=== PATIENT | female | born 2000 | race Native Hawaiian/Other Pacific Islander ===

== ENCOUNTER 2021-03-21 21:06 | Inpatient (IN) | payer OTHER, SELFPAY ==
[2021-03-21] MEDS ORDERED: cefTRIAXone/NS 1 GM/50 ML 1 GM/50 ML BAG IV ONE (22:23)
[2021-03-21] MEDS ORDERED: SODIUM CHLORIDE 0.9% 1000 ML IV SOLN IV ONE (22:24)
--- NOTE | 2021-03-21 22:27 | Event Note ---
ED Screening Note Date of service: 03/21/21 Time: 22:26 ED Screening Note: Is a 20-year-old female who presents for cough shortness of breath and fever x3 days. States PCP advised her that she had bilateral lobe pneumonia. Patient is states negative Covid test. Patient denies history of asthma there is no shortness of breath however there is mild weakness malaise and dizziness. This initial assessment/diagnostic orders/clinical plan/treatment(s) is/are subject to change based on patients health status, clinical progression and re- assessment by fellow clinical providers in the ED. Further treatment and workup at subsequent clinical providers discretion. Patient/guardian urged not to elope from the ED as their condition may be serious if not clinically assessed and managed. Initial orders include: Sepsis, cmp, cbc, ua, hcg, lactic acic, bc x 2, ivfs, abx,
[2021-03-21 22:58] LABS: Basophils % (Auto) 0.2 % (0.0-1.8); Hematocrit 38.3 % (30.3-42.9); Lymphocytes # (Auto) 1.3 K/mm3 (1.2-5.4); Lymphocytes % (Auto) 10.4 % (13.4-35.0); Mean Corpuscular HGB Conc 34 % (30-34); Mean Corpuscular Volume 90 fl (79-97); Monocytes # (Auto) 0.8 K/mm3 (0.0-0.8); Monocytes % (Auto) 6.2 % (0.0-7.3); Platelet Count 259 K/mm3 (140-440); Red Blood Count 4.28 M/mm3 (3.65-5.03); Red Cell Distribution Width 12.7 % (13.2-15.2)
[2021-03-21] MEDS ORDERED: ACETAMINOPHEN 325 MG TAB PO ONE (23:02)
[2021-03-22] MEDS ORDERED: ACETAMINOPHEN 500 MG TAB ONE (00:05)
[2021-03-22] MEDS ORDERED: ACETAMINOPHEN 500 MG TAB PO ONE (00:40)
[2021-03-22] MEDS ORDERED: dexAMETHasone 4 MG/ML VIAL IV ONE (00:40)
[2021-03-22] MEDS ORDERED: dexAMETHasone 4 MG/ML VIAL ONE (00:45)
[2021-03-22] MEDS ORDERED: AZITHROMYCIN/NS 500 MG/250 ML 500 MG/250 ML BAG IV ONE (00:46)
[2021-03-22] MEDS ORDERED: AZITHROMYCIN/NS 500 MG/250 ML 500 MG/250 ML BAG IV SCH (01:00)
[2021-03-22] MEDS ORDERED: dexAMETHasone 4 MG/ML VIAL IV SCH (01:00)
--- NOTE | 2021-03-22 02:08 | Emergency Department Report ---
ED Shortness of Breath HPI - General Chief Complaint: Dyspnea/Respdistress Stated Complaint: PNEUMONIA Time Seen by Provider: 03/21/21 22:46 Source: patient Mode of arrival: Ambulatory Limitations: No Limitations - History of Present Illness Initial Comments: Patient is 20 years old female with no significant past medical history. Patient presented to the ER after she has been referred by her primary care physician to the ER for evaluation of bilateral pneumonia. Patient stated the symptoms started approximately 7 days ago with fever, shortness of breath and cough. Patient stated that her father is having similar symptoms. Patient is not vaccinated against COVID-19. Patient also reported nausea but no vomiting. Patient found to be hypoxic with oxygen saturation of 90% on room air improved to 96% on 2 L. MD Complaint: shortness of breath, cough -: days(s) - Related Data Allergies Allergy/AdvReac Type Severity Reaction Status Date / Time No Known Allergies Allergy Unverified 03/21/21 22:11 ED Review of Systems ROS: Stated complaint: PNEUMONIA Other details as noted in HPI Comment: All other systems reviewed and negative Constitutional: chills, fever Respiratory: cough, shortness of breath. denies: SOB with exertion, wheezing Cardiovascular: palpitations. denies: chest pain Gastrointestinal: nausea. denies: abdominal pain, vomiting, diarrhea, constipation, hematemesis Neurological: denies: headache, weakness, numbness, paresthesias, confusion ED Past Medical Hx - Past Medical History Previous Medical History?: No - Surgical History Past Surgical History?: No ED Physical Exam - General Limitations: No Limitations General appearance: alert, in no apparent distress - Head Head exam: Present: atraumatic, normocephalic, normal inspection - Eye Eye exam: Present: normal appearance, PERRL - ENT ENT exam: Present: mucous membranes dry - Neck Neck exam: Present: normal inspection, full ROM. Absent: tenderness, meningismus - Respiratory Respiratory exam: Present: normal lung sounds bilaterally. Absent: respiratory distress, wheezes, rales, rhonchi, accessory muscle use, decreased breath sounds, prolonged expiratory - Cardiovascular Cardiovascular Exam: Present: regular rate, normal rhythm, normal heart sounds - GI/Abdominal GI/Abdominal exam: Present: soft, normal bowel sounds. Absent: distended, tenderness, guarding, rebound, rigid, organomegaly, mass, bruit, pulsatile mass, hernia - Extremities Exam Extremities exam: Present: normal inspection, full ROM, normal capillary refill. Absent: tenderness, pedal edema, joint swelling, calf tenderness - Back Exam Back exam: Present: normal inspection, full ROM. Absent: CVA tenderness (R), CVA tenderness (L) - Neurological Exam Neurological exam: Present: alert, oriented X3, CN II-XII intact, normal gait, reflexes normal. Absent: motor sensory deficit - Psychiatric Psychiatric exam: Present: normal mood - Skin Skin exam: Present: warm, intact, normal color ED Course Vital Signs 03/21/21 22:13 Temperature 103.0 F H Pulse Rate 142 H Respiratory 18 Rate Blood Pressure 120/59 O2 Sat by Pulse 92 Oximetry ED Medical Decision Making - Lab Data Result diagrams: 03/21/21 22:34 03/21/21 22:34 - Radiology Data Radiology results: report reviewed - Medical Decision Making Patient is 20 years old female with no significant past medical history. Patient presented to the ER after she has been referred by her primary care physician to the ER for evaluation of bilateral pneumonia. Patient stated the symptoms started approximately 7 days ago with fever, shortness of breath and cough. Patient stated that her father is having similar symptoms. Patient is not vaccinated against COVID-19. Patient also reported nausea but no vomiting. Patient found to be hypoxic with oxygen saturation of 90% on room air improved to 96% on 2 L. Labs reviewed and showed leukocytosis. Chest x-ray showed bilateral infiltrate concerning for pneumonia. Patient received Rocephin, Zithromax, Decadron, normal saline and Tylenol. I discussed the patient with Dr. Ponce, he agreed to admit the patient to medical service for further management. Critical Care Time: Yes Critical care time in (mins) excluding proc time.: 30 Critical care attestation.: If time is entered above; I have spent that time in minutes in the direct care of this critically ill patient, excluding procedure time. ED Disposition Clinical Impression: Acute respiratory failure with hypoxia, Bilateral pneumonia, Suspected COVID-19 virus infection Disposition: ADMITTED INPATIENT Is pt being admited?: Yes Condition: Stable Instructions: Bacterial Pneumonia (ED)
[2021-03-22 02:50] LABS: Bilirubin,Urine NEG (Negative); Blood,Urine SM (Negative); Color,Urine Yellow (Yellow); Mucus,Urine FEW /HPF
[2021-03-22 02:50] LABS: Alanine Aminotransferase 71 units/L (7-56); Albumin 4.1 g/dL (3.9-5); BUN/Creatinine Ratio 14; Blood Urea Nitrogen 11 mg/dL (7-17); Hemolysis Index 2
[2021-03-22 02:57] LABS: HCG Qualitative,Urine Negative (Negative)
[2021-03-22] MEDS ORDERED: oxyCODONE /ACETAMINOPHEN 5-325MG TAB PO PRN (03:17)
[2021-03-22] MEDS ORDERED: ALBUTEROL 2.5 MG/3 ML NEBU IH PRN (03:17)
[2021-03-22] MEDS ORDERED: HYDROmorphone 1 MG/1 ML INJ IV PRN (03:17)
--- NOTE | 2021-03-22 03:25 | History and Physical Report ---
History of Present Illness Date of examination: 03/22/21 Date of admission: 03/22/21 Chief complaint: Shortness of breath Cough History of present illness: 20 years old female with no significant past medical history was brought to the emergency room because of bilateral pneumonia, shortness of breath and coughing for the last 7 days. patient stated the symptoms started approximately 7 days ago with fever, shortness of breath and cough. Patient stated that her father is having similar symptoms. Patient is not vaccinated against COVID-19. Patient also reported nausea but no vomiting. Patient found to be hypoxic with oxygen saturation of 90% on room air improved to 96% on 2 L. In the emergency room patient chest x-ray consistent with Covid pneumonia. We are going to admit the patient will consult infectious disease for evaluation. We also sent Covid PCR Medications and Allergies Allergies Allergy/AdvReac Type Severity Reaction Status Date / Time No Known Allergies Allergy Unverified 03/21/21 22:11 Review of Systems All systems: negative Constitutional: fever Cardiovascular: shortness of breath, dyspnea on exertion Respiratory: cough, shortness of breath, dyspnea on exertion Exam - Constitutional Vitals: Temp Pulse Resp BP Pulse Ox 103.0 F H 142 H 18 120/59 92 03/21/21 22:13 03/21/21 22:13 03/21/21 22:13 03/21/21 22:13 03/21/21 22:13 General appearance: Present: no acute distress, well-nourished - EENT Eyes: Present: PERRL ENT: hearing intact, clear oral mucosa - Neck Neck: Present: supple, normal ROM - Respiratory Respiratory effort: normal Respiratory: bilateral: diminished - Cardiovascular Heart Sounds: Present: S1 & S2. Absent: rub, click - Extremities Extremities: pulses symmetrical, No edema Peripheral Pulses: within normal limits - Abdominal General gastrointestinal: Present: soft, non-tender, non-distended, normal bowel sounds Female genitourinary: Present: normal - Integumentary Integumentary: Present: clear, warm, dry - Musculoskeletal Musculoskeletal: gait normal, strength equal bilaterally - Psychiatric Psychiatric: appropriate mood/affect, intact judgment & insight - Neurologic Neurologic: CNII-XII intact, moves all extremities Results - Labs CBC & Chem 7: 03/21/21 22:34 03/21/21 22:34 Labs: Laboratory Last Values WBC 12.5 K/mm3 (4.5-11.0) H 03/21/21 22:34 RBC 4.28 M/mm3 (3.65-5.03) 03/21/21 22:34 Hgb 13.0 gm/dl (10.1-14.3) 03/21/21 22:34 Hct 38.3 % (30.3-42.9) 03/21/21 22:34 MCV 90 fl (79-97) 03/21/21 22:34 MCH 31 pg (28-32) 03/21/21 22:34 MCHC 34 % (30-34) 03/21/21 22:34 RDW 12.7 % (13.2-15.2) L 03/21/21:34 Plt Count 259 K/mm3 (140-440) 03/21/21 22:34 Lymph % (Auto) 10.4 % (13.4-35.0) L 03/21/21 22:34 [place] % (Auto) 6.2 % (0.0-7.3) 03/21/21 22:34 Eos % (Auto) 0.0 % (0.0-4.3) 03/21/21 22:34 Baso % (Auto) 0.2 % (0.0-1.8) 03/21/21:34 Lymph # (Auto) 1.3 K/mm3 (1.2-5.4) 03/21/21 22:34 [place] # (Auto) 0.8 K/mm3 (0.0-0.8) 03/21/21 22:34 Eos # (Auto) 0.0 K/mm3 (0.0-0.4) 03/21/21 22:34 Baso # (Auto) 0.0 K/mm3 (0.0-0.1) 03/21/21 22:34 Seg Neutrophils % 83.2 % (40.0-70.0) H 03/21/21:34 Seg Neutrophils # 10.4 K/mm3 (1.8-7.7) H 03/21/21 22:34 Sodium 136 mmol/L (137-145) L 03/21/21 22:34 Potassium 3.1 mmol/L (3.6-5.0) L 03/21/21 22:34 Chloride 99.3 mmol/L (98-107) 03/21/21 22:34 Carbon Dioxide 20 mmol/L (22-30) L 03/21/21 22:34 Anion Gap 20 mmol/L 03/21/21 22:34 BUN 11 mg/dL (7-17) 03/21/21 22:34 Creatinine 0.8 mg/dL (0.6-1.2) 03/21/21 22:34 Estimated GFR > 60 ml/min 03/21/21 22:34 BUN/Creatinine Ratio 14 % 03/21/21 22:34 Glucose 131 mg/dL (65-100) H 03/21/21 22:34 Lactic Acid 1.70 mmol/L (0.7-2.0) 03/21/21 22:34 Calcium 9.0 mg/dL (8.4-10.2) 03/21/21 22:34 Total Bilirubin 0.40 mg/dL (0.1-1.2) 03/21/21 22:34 AST 46 units/L (5-40) H 03/21/21 22:34 ALT 71 units/L (7-56) H 03/21/21 22:34 Alkaline Phosphatase 62 units/L (35-129) 03/21/21 22:34 Total Protein 8.5 g/dL (6.3-8.2) H 03/21/21 22:34 Albumin 4.1 g/dL (3.9-5) 03/21/21 22:34 Albumin/Globulin Ratio 0.9 % 03/21/21 22:34 Urine Color Yellow (Yellow) 03/21/21 23:00 Urine Turbidity Slightly-cloudy (Clear) 03/21/21 23:00 Urine pH 6.0 (5.0-7.0) 03/21/21 23:00 Ur Specific [place] 1.020 (1.003-1.030) 03/21/21 23:00 Urine Protein 100 mg/dl mg/dL (Negative) 03/21/21 23:00 Urine Glucose (UA) Neg mg/dL (Negative) 03/21/21 23:00 Urine Ketones 80 mg/dL (Negative) 03/21/21 23:00 Urine Blood Sm (Negative) 03/21/21 23:00 Urine Nitrite Neg (Negative) 03/21/21 23:00 Urine Bilirubin Neg (Negative) 03/21/21 23:00 Urine Urobilinogen 2.0 mg/dL (<2.0) 03/21/21 23:00 Ur Leukocyte Esterase Mod (Negative) 03/21/21 23:00 Urine WBC (Auto) 13.0 /HPF (0.0-6.0) H 03/21/21 23:00 Urine RBC (Auto) 2.0 /HPF (0.0-6.0) 03/21/21 23:00 U Epithel Cells (Auto) 4.0 /HPF (0-13.0) 03/21/21 23:00 Urine Mucus Few /HPF 03/21/21 23:00 Urine HCG, Qual Negative (Negative) 03/21/21 23:00 - Imaging and Cardiology Chest x-ray: report reviewed Assessment and Plan VTE prophylaxis?: Chemical Plan of care discussed with patient/family: Yes - Patient Problems (1) Acute respiratory failure with hypoxia Status: Acute Plan to address problem: Admit the patient to the medical telemetry. Oxygen via nasal cannula 3 L/min. DuoNeb by nebulizer every 4 hours. Albuterol via nebulizer every 4 hours as needed. Dexamethasone 6 mg IV daily. Rocephin 2 g IV daily and Zithromax 500 mg IV daily. We will send the Covid PCR. Follow Covid inflammatory marker. Will consult infectious disease evaluation (2) Bilateral pneumonia Status: Acute Plan to address problem: Oxygen via nasal cannula 3 L/min. DuoNeb by nebulizer every 4 hours. Rocephin 2 g IV daily and Zithromax 500 mg IV daily. We do the blood cultures sputum culture (3) Suspected COVID-19 virus infection Status: Acute Plan to address problem: Oxygen via nasal cannula 3 L/min. DuoNeb by nebulizer every 4 hours. Albuterol via nebulizer every 4 hours as needed. Dexamethasone 6 mg IV daily. Rocephin 2 g IV daily and Zithromax 500 mg IV daily. We will send the Covid PCR. Follow Covid inflammatory marker. Will consult infectious disease evaluation (4) DVT prophylaxis Status: Acute Plan to address problem: Heparin 5000 units subcu every 8 hours for DVT prophylaxis. Pepcid 20 mg p.o. twice daily for GI prophylaxis. Patient is a full code
[2021-03-22] MEDS: HEPARIN 5,000 UNIT/1 ML VIAL SUB-Q SCH ×3 (06:30→22:24)
--- NOTE | 2021-03-22 09:03 | Consultation ---
History of Present Illness - Reason for Consult Consult date: 03/22/21 covid - History of Present Illness 20-year-old female no medical history, admitted on 03/21/2021 secondary to 7-day history of malaise, cough, fever, shortness of breath. Patient's father has same symptoms. Patient did not receive COVID-19 vaccination. Patient was evaluated with primary care physician who sent the patient to the emergency room. In the ED, initial temperature 103, HR 142, RR 18, O2 sat 92%, BP 120/59. Initial WBC 12.5. AST 46. ALT 71. Urinalysis 13 WBCs with moderate leukocyte esterase. Blood culture pending. Chest x-ray shows moderate patchy airspace disease. In the ED sats dropped to 90% patient placed on 2 L. Review of Systems: reviewed ED and H&P notes. Review of system deferred to minimize COVID-19 transmission. Medications and Allergies Allergies Allergy/AdvReac Type Severity Reaction Status Date / Time No Known Allergies Allergy Unverified 03/21/21 22:11 Active Meds: Active Medications Acetaminophen (Acetaminophen 325 Mg Tab) 650 mg PO Q4H PRN PRN Reason: Pain MILD(1-3)/Fever >100.5/[place] Albuterol (Albuterol 2.5 Mg/3 Ml Nebu) 2.5 mg IH Q4HRT PRN PRN Reason: Shortness Of Breath Albuterol/Ipratropium (Ipratropium/Albuterol Sulfate 3 Ml Ampul.Neb) 1 ampul IH Q6HRT [facility] Dexamethasone (Dexamethasone 4 Mg/Ml Vial) 6 mg IV DAILY [facility] Stop: 03/31/21 10:01 Famotidine (Famotidine 20 Mg Tab) 20 mg PO BID [facility] Heparin Sodium (Porcine) (Heparin 5,000 Unit/1 Ml Vial) 5,000 unit SUB-Q Q8HR [facility] Last Admin: 03/22/21 06:30 Dose: 5,000 unit Documented by: Hydromorphone HCl (Hydromorphone 1 Mg/1 Ml Inj) 0.5 mg IV Q3H PRN PRN Reason: Pain , Severe (7-10) Ceftriaxone Sodium (Rocephin/Ns 2 Gm/100 Ml) 2 gm in 100 mls @ 200 mls/hr IV QHS [facility]; Protocol Stop: 03/25/21 22:29 Azithromycin (Zithromax/Ns) 500 mg in 250 mls @ 250 mls/hr IV QHS [facility]; Protocol Stop: 03/25/21 22:59 Ondansetron HCl (Ondansetron 4 Mg/2 Ml Inj) 4 mg IV Q8H PRN PRN Reason: Nausea And Vomiting Oxycodone/Acetaminophen (Oxycodone /Acetaminophen 5-325mg Tab) 1 tab PO Q6H PRN PRN Reason: Pain, Moderate (4-6) Sodium Chloride (Sodium Chloride 0.9% 10 Ml Flush Syringe) 10 ml IV BID [facility] Sodium Chloride (Sodium Chloride 0.9% 10 Ml Flush Syringe) 10 ml IV PRN PRN PRN Reason: LINE FLUSH Physical Examination - Physical Exam Narrative exam: Physical exam deferred to minimize COVID-19 transmission during pandemic. - Constitutional Vitals: Vital Signs Temp Pulse Resp BP Pulse Ox 103.0 F H 142 H 18 120/59 92 03/21/21 22:13 03/21/21 22:13 03/21/21 22:13 03/21/21 22:13 03/21/21 22:13 Temperature -Last 24 Hours Temperature 103.0 F Results - Labs CBC & Chem 7: 03/21/21 22:34 03/21/21 22:34 Labs: Abnormal lab results 03/21/21 03/21/21 03/21/21 Range/Units 22:34 22:34 23:00 WBC 12.5 H (4.5-11.0) K/mm3 RDW 12.7 L (13.2-15.2) % Lymph % (Auto) 10.4 L (13.4-35.0) % Seg Neutrophils % 83.2 H (40.0-70.0) % Seg Neutrophils # 10.4 H (1.8-7.7) K/mm3 Sodium 136 L (137-145) mmol/L Potassium 3.1 L (3.6-5.0) mmol/L Carbon Dioxide 20 L (22-30) mmol/L Glucose 131 H (65-100) mg/dL AST 46 H (5-40) units/L ALT 71 H (7-56) units/L Total Protein 8.5 H (6.3-8.2) g/dL Urine WBC (Auto) 13.0 H (0.0-6.0) /HPF Assessment and Plan Cultures: Blood culture pending SARS CoV2 PCR pending Assessment: 20-year-old female no medical history, admitted on 03/21/2021 secondary to 7-day history of malaise, cough, fever, shortness of breath: #SIRS: Present on admission with fever, leukocytosis, elevated LFTs, likely secondary to COVID-19 infection plus UTI #Bilateral pneumonia: Suspect COVID-19 infection. CXR with multifocal airspace disease. Infllammatory markers pending. #Urinalysis consistent with UTI. #Acute hypoxemic respiratory failure: Sats dropped to 90%. Patient on 2 L. #Elevated LFTs: from COVID Recommendations: -Continue dexamethasone 6 mg IV/PO daily for 10 days -Once SARS-CoV-2 is positive start remdesivir for 5 days (CrCl>30 mg/mL) if patient continues on oxygen supplementation -Monitor inflammatory markers - ferritin, Ddimer, CRP, LDH -Continue anticoagulation per System Protocol -Prone positioning as possible -Continue ceftriaxone for 5 days and azithromycin for 3 says -Follow-up blood culture and urine culture All laboratory, cultures and imaging were reviewed. Will follow Gaby Morley MD Infectious Diseases Merchandising Manager [facility] ([facility] M [phone] O [phone]
[2021-03-22] MEDS: FAMOTIDINE 20 MG TAB PO SCH ×2 (10:10→22:22)
[2021-03-22] MEDS: dexAMETHasone 4 MG/ML VIAL IV SCH (10:10)
--- NOTE | 2021-03-22 15:35 | Progress Note ---
Assessment and Plan -- Acute respiratory failure with hypoxia, resolved Likely due to underlying Covid pneumonia We will assess home O2 requirement on ambulation Continue Covid protocol: Nasal cannula O2 as needed -- Bilateral pneumonia with COVID-19 virus infection -Patient tested positive for COVID-19 virus -CXR shows patchy parenchymal disease which represent atypical pneumonia -S/p dexamethasone, azithromycin and Rocephin in the ED -Ordered procalcitonin level, continue empiric antibiotics and steroids for now -Infectious disease consulted, -Droplet/contact isolation -Continue SPO2 monitoring -Supplemental oxygen as needed -Pulmonary hygiene -Prone to sleep -Vitamin C, vitamin D, zinc -Anticoagulation per protocol -Lasix IV as needed to prevent pulmonary edema --Hypokalemia, replete and follow BMP --DVT prophylaxis Heparin 5000 units subcu every 8 hours for DVT prophylaxis. Pepcid 20 mg p.o. twice daily for GI prophylaxis. Patient is a full code Daily clinical course; 03/22/21: positive for COVID, consulted ID, follow recommendation. Continue empiric antibiotic. Procalcitonin level is pending, patient resting in room air does not meet criteria for remdesivir. Subjective Date of service: 03/22/21 Interval history: Patient seen and examined. Medical records and medication list reviewed. No acute event overnight noted by the RN. Patient denies any chest pain or difficulty breathing. Patient is tolerating diet. Complains of cough: Remains on room air, positive for covid 19 Discussed plan of care at bedside with patient. Objective - Exam Narrative Exam: Limited physical exam due to COVID-19 pandemic to minimize transmission of the disease and to preserve PPE. Vital reviewed and stable. GENERAL: well-developed well-nourished lying on bed appeared to be in no discomfort. HEENT: Normocephalic. Atraumatic. NECK: Supple. CHEST/LUNGS: breathing nonlabored. HEART/CARDIOVASCULAR: Heart rate stable on telemetry ABDOMEN: Visibly not distended SKIN: There is no rash NEURO: No focal motor deficit. Follows command. MUSCULOSKELETAL: No joint effusion EXTRIMITY: No swelling, no cyanosis or clubbing. PSYCH: Cooperative. - Constitutional Vitals: Vital Signs - 12hr 03/22/21 11:08 O2 Sat by Pulse 97 Oximetry - Labs CBC & Chem 7: 03/21/21 22:34 09/21/21 22:34 Labs: Abnormal lab results 03/21/21 03/21/21 03/21/21 Range/Units 22:34 22:34 23:00 WBC 12.5 H (4.5-11.0) K/mm3 RDW 12.7 L (13.2-15.2) % Lymph % (Auto) 10.4 L (13.4-35.0) % Seg Neutrophils % 83.2 H (40.0-70.0) % Seg Neutrophils # 10.4 H (1.8-7.7) K/mm3 Sodium 136 L (137-145) mmol/L Potassium 3.1 L (3.6-5.0) mmol/L Carbon Dioxide 20 L (22-30) mmol/L Glucose 131 H (65-100) mg/dL AST 46 H (5-40) units/L ALT 71 H (7-56) units/L Total Protein 8.5 H (6.3-8.2) g/dL Urine WBC (Auto) 13.0 H (0.0-6.0) /HPF Coronavirus (PCR) (Negative) 03/22/21 Range/Units Unknown WBC (4.5-11.0) K/mm3 RDW (13.2-15.2) % Lymph % (Auto) (13.4-35.0) % Seg Neutrophils % (40.0-70.0) % Seg Neutrophils # (1.8-7.7) K/mm3 Sodium (137-145) mmol/L Potassium (3.6-5.0) mmol/L Carbon Dioxide (22-30) mmol/L Glucose (65-100) mg/dL AST (5-40) units/L ALT (7-56) units/L Total Protein (6.3-8.2) g/dL Urine WBC (Auto) (0.0-6.0) /HPF Coronavirus (PCR) Positive A (Negative)
[2021-03-22] MEDS: IPRATROPIUM/ALBUTEROL SULFATE 3 ML AMPUL.NEB IH SCH ×3 (16:12→21:43)
[2021-03-22] MEDS: AZITHROMYCIN/NS 500 MG/250 ML 500 MG/250 ML BAG IV SCH (22:23)
[2021-03-22] MEDS: ACETAMINOPHEN 325 MG TAB PO PRN (22:24)
[2021-03-22] MEDS: ONDANSETRON 4 MG/2 ML INJ IV PRN (22:40)
[2021-03-22] MEDS: cefTRIAXone/NS 2 GM/100 ML 2 GM/100 ML BAG IV SCH (22:41)
[2021-03-22] MEDS: guaiFENesin 100 MG/5 ML ORAL LIQD PO PRN (23:10)
[2021-03-23] MEDS: IPRATROPIUM/ALBUTEROL SULFATE 3 ML AMPUL.NEB IH SCH ×2 (01:37→18:38)
[2021-03-23] MEDS: guaiFENesin 100 MG/5 ML ORAL LIQD PO PRN ×3 (06:44→22:15)
[2021-03-23] MEDS: HEPARIN 5,000 UNIT/1 ML VIAL SUB-Q SCH ×3 (06:44→22:15)
--- NOTE | 2021-03-23 08:17 | Progress Note ---
Assessment and Plan Assessment and plan: -- Acute respiratory failure with hypoxia, resolved Likely due to underlying Covid pneumonia We will assess home O2 requirement on ambulation Continue Covid protocol: Nasal cannula O2 as needed -- Bilateral pneumonia with COVID-19 virus infection -Patient tested positive for COVID-19 virus -CXR shows patchy parenchymal disease which represent atypical pneumonia -S/p dexamethasone, azithromycin and Rocephin in the ED -Ordered procalcitonin level, continue empiric antibiotics and steroids for now -Infectious disease consulted, -Droplet/contact isolation -Continue SPO2 monitoring -Supplemental oxygen as needed -Pulmonary hygiene -Prone to sleep -Vitamin C, vitamin D, zinc -Anticoagulation per protocol -Lasix IV as needed to prevent pulmonary edema --Hypokalemia, replete and follow BMP --DVT prophylaxis Heparin 5000 units subcu every 8 hours for DVT prophylaxis. Pepcid 20 mg p.o. twice daily for GI prophylaxis. Patient is a full code Daily clinical course; 03/22/21: positive for COVID, consulted ID, follow recommendation. Continue empiric antibiotic. Procalcitonin level is pending, patient resting in room air does not meet criteria for remdesivir. 03/23 -Patient was on 2 L of oxygen. She does complaining cough, shortness of breath. We will do 6-minute walk. And if off oxygen patient can be discharged tomorrow. History Interval history: Patient was seen and evaluated this morning Patient was complaining shortness of breath, chest pain and cough Hospitalist Physical - Physical exam Narrative exam: Not in cardiopulmonary distress. The patient is obese. Vital signs as documented. Head exam is unremarkable. No scleral icterus . Neck is without jugular venous distension, thyromegaly, or carotid bruits. Lungs are clear to auscultation. Cardiac exam reveals regular rate and Rhythm. Abdominal exam reveals normal bowel sounds, nontender, no organomegaly. Extremities are nonedematous and both femoral and pedal pulses are normal. 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 No focal weakness. - Constitutional Vitals: Temp Pulse Resp BP Pulse Ox 98.5 F 88 16 114/60 91 03/23/21 04:17 03/23/21 04:17 03/23/21 04:17 03/23/21 04:17 03/23/21 04:17 General appearance: Present: no acute distress, well-nourished Results - Labs CBC & Chem 7: 03/23/21 09:17 03/23/21 09:17 Labs: Laboratory Last Values WBC 12.5 K/mm3 (4.5-11.0) H 03/21/21 22:34 RBC 4.28 M/mm3 (3.65-5.03) 03/21/21 22:34 Hgb 13.0 gm/dl (10.1-14.3) 03/21/21 22:34 Hct 38.3 % (30.3-42.9) 03/21/21 22:34 MCV 90 fl (79-97) 03/21/21 22:34 MCH 31 pg (28-32) 03/21/21 22:34 MCHC 34 % (30-34) 03/21/21 22:34 RDW 12.7 % (13.2-15.2) L 03/21/21 22:34 Plt Count 259 K/mm3 (140-440) 03/21/21 22:34 Lymph % (Auto) 10.4 % (13.4-35.0) L 03/21/21 22:34 [place] % (Auto) 6.2 % (0.0-7.3) 03/21/21 22:34 Eos % (Auto) 0.0 % (0.0-4.3) 03/21/21 22:34 Baso % (Auto) 0.2 % (0.0-1.8) 03/21/21 22:34 Lymph # (Auto) 1.3 K/mm3 (1.2-5.4) 03/21/21 22:34 [place] # (Auto) 0.8 K/mm3 (0.0-0.8) 03/21/21 22:34 Eos # (Auto) 0.0 K/mm3 (0.0-0.4) 03/21/21 22:34 Baso # (Auto) 0.0 K/mm3 (0.0-0.1) 03/21/21 22:34 Seg Neutrophils % 83.2 % (40.0-70.0) H 03/21/21 22:34 Seg Neutrophils # 10.4 K/mm3 (1.8-7.7) H 03/21/21 22:34 Sodium 136 mmol/L (137-145) L 03/21/21 22:34 Potassium 3.1 mmol/L (3.6-5.0) L 03/21/21 22:34 Chloride 99.3 mmol/L (98-107) 03/21/21 22:34 Carbon Dioxide 20 mmol/L (22-30) L 03/21/21 22:34 Anion Gap 20 mmol/L 03/21/21 22:34 BUN 11 mg/dL (7-17) 03/21/21 22:34 Creatinine 0.8 mg/dL (0.6-1.2) 03/21/21 22:34 Estimated GFR > 60 ml/min 03/21/21 22:34 BUN/Creatinine Ratio 14 % 03/21/21 22:34 Glucose 131 mg/dL (65-100) H 03/21/21 22:34 Lactic Acid 1.70 mmol/L (0.7-2.0) 03/21/21 22:34 Calcium 9.0 mg/dL (8.4-10.2) 03/21/21 22:34 Total Bilirubin 0.40 mg/dL (0.1-1.2) 03/21/21 22:34 AST 46 units/L (5-40) H 03/21/21 22:34 ALT 71 units/L (7-56) H 03/21/21 22:34 Alkaline Phosphatase 62 units/L (35-129) 03/21/21 22:34 Total Protein 8.5 g/dL (6.3-8.2) H 03/21/21 22:34 Albumin 4.1 g/dL (3.9-5) 03/21/21 22:34 Albumin/Globulin Ratio 0.9 % 03/21/21 22:34 HCG, Qual Negative (Negative) 03/21/21 23:54 Urine Color Yellow (Yellow) 03/21/21 23:00 Urine Turbidity Slightly-cloudy (Clear) 03/21/21 23:00 Urine pH 6.0 (5.0-7.0) 03/21/21 23:00 Ur Specific [place] 1.020 (1.003-1.030) 03/21/21 23:00 Urine Protein 100 mg/dl mg/dL (Negative) 03/21/21 23:00 Urine Glucose (UA) Neg mg/dL (Negative) 03/21/21 23:00 Urine Ketones 80 mg/dL (Negative) 03/21/21 23:00 Urine Blood Sm (Negative) 03/21/21 23:00 Urine Nitrite Neg (Negative) 03/21/21 23:00 Urine Bilirubin Neg (Negative) 03/21/21 23:00 Urine Urobilinogen 2.0 mg/dL (<2.0) 03/21/21 23:00 Ur Leukocyte Esterase Mod (Negative) 03/21/21 23:00 Urine WBC (Auto) 13.0 /HPF (0.0-6.0) H 03/21/21 23:00 Urine RBC (Auto) 2.0 /HPF (0.0-6.0) 03/21/21 23:00 U Epithel Cells (Auto) 4.0 /HPF (0-13.0) 03/21/21 23:00 Urine Mucus Few /HPF 03/21/21 23:00 Urine HCG, Qual Negative (Negative) 03/21/21 23:00 Coronavirus (PCR) Positive (Negative) A 03/22/21 Unknown Microbiology: Microbiology 03/21/21 23:00 Peripheral/Venous Blood Culture - Preliminary NO GROWTH AFTER 24 HOURS 03/21/21 22:30 Peripheral/Venous Blood Culture - Preliminary NO GROWTH AFTER 24 HOURS Brewer/IV: Voiding Method Toilet Active Medications - Current Medications Current Medications: Generic Name Dose Route Start Last Admin Trade Name Freq PRN Reason Stop Dose Admin Acetaminophen 650 mg 03/22/21 03:17 03/22/21 22:24 Acetaminophen 325 Mg Tab PO 650 mg Q4H PRN Administration Pain MILD(1-3)/Fever >100.5/LOCKHART Albuterol 2.5 mg 03/22/21 03:17 Albuterol 2.5 Mg/3 Ml Nebu IH Q4HRT PRN Shortness Of Breath Albuterol/Ipratropium 1 ampul 03/22/21 08:00 03/23/21 01:37 Ipratropium/Albuterol Sulfate 3 Ml Ampul.Neb IH Not Given Q6HRT BERNARDINO Dexamethasone 6 mg 03/22/21 10:00 03/22/21 10:10 Dexamethasone 4 Mg/Ml Vial IV 03/31/21 10:01 6 mg DAILY BERNARDINO Administration Famotidine 20 mg 03/22/21 10:00 03/22/21 22:22 Famotidine 20 Mg Tab PO 20 mg BID BERNARDINO Administration Guaifenesin 100 mg 03/22/21 23:30 03/23/21 06:44 Guaifenesin 100 Mg/5 Ml Oral Liqd PO 100 mg Q4H PRN Administration Cough Heparin Sodium (Porcine) 5,000 unit 03/22/21 06:00 03/23/21 06:44 Heparin 5,000 Unit/1 Ml Vial SUB-Q 5,000 unit Q8HR BERNARDINO Administration Hydromorphone HCl 0.5 mg 03/22/21 03:17 Hydromorphone 1 Mg/1 Ml Inj IV Q3H PRN Pain , Severe (7-10) Ceftriaxone Sodium 2 gm in 100 mls @ 200 mls/hr 03/22/21 22:00 03/23/21 06:42 Rocephin/Ns 2 Gm/100 Ml IV 03/25/21 22:29 Infused QHS BERNARDINO Infusion Protocol Azithromycin 500 mg in 250 mls @ 250 mls/hr 03/22/21 22:00 03/23/21 06:41 Zithromax/Ns IV 03/25/21 22:59 Infused QHS BERNARDINO Infusion Protocol Ondansetron HCl 4 mg 03/22/21 03:17 03/22/21 22:40 Ondansetron 4 Mg/2 Ml Inj IV 4 mg Q8H PRN Administration Nausea And Vomiting Oxycodone/Acetaminophen 1 tab 03/22/21 03:17 03/22/21 22:22 Oxycodone /Acetaminophen 5-325mg Tab PO 1 tab Q6H PRN Administration Pain, Moderate (4-6) Sodium Chloride 10 ml 03/22/21 10:00 03/22/21 22:24 Sodium Chloride 0.9% 10 Ml Flush Syringe IV 10 ml BID BERNARDINO Administration Sodium Chloride 10 ml 03/22/21 03:17 Sodium Chloride 0.9% 10 Ml Flush Syringe IV PRN PRN LINE FLUSH
[2021-03-23] MEDS: dexAMETHasone 4 MG/ML VIAL IV SCH (09:33)
[2021-03-23] MEDS: FAMOTIDINE 20 MG TAB PO SCH ×2 (09:33→22:14)
[2021-03-23 09:35] LABS: Basophils # (Auto) 0.1 K/mm3 (0.0-0.1); Basophils % (Auto) 0.9 % (0.0-1.8); Hemoglobin 11.9 gm/dl (10.1-14.3); Lymphocytes # (Auto) 2.5 K/mm3 (1.2-5.4); Lymphocytes % (Auto) 18.3 % (13.4-35.0); Mean Corpuscular HGB Conc 34 % (30-34); Mean Corpuscular Volume 91 fl (79-97); Monocytes # (Auto) 0.8 K/mm3 (0.0-0.8); Red Blood Count 3.85 M/mm3 (3.65-5.03); Red Cell Distribution Width 12.8 % (13.2-15.2)
[2021-03-23 09:49] LABS: Blood Urea Nitrogen 7 mg/dL (7-17); Calcium 8.7 mg/dL (8.4-10.2); Hemolysis Index 33
[2021-03-23 09:54] LABS: BUN/Creatinine Ratio 10
[2021-03-23] MEDS ORDERED: REMDESIVIR 200 MG in SODIUM CHLORIDE 0.9% 250ML 250 ML IV ONE (11:00)
[2021-03-23 11:46] LABS: Platelet Count 279 K/mm3 (140-440)
[2021-03-23] MEDS: ACETAMINOPHEN 325 MG TAB PO PRN (11:50)
[2021-03-23] MEDS: SODIUM CHLORIDE 0.9% 50 ML IVPB IV SCH (11:51)
--- NOTE | 2021-03-23 13:23 | Progress Note ---
Assessment and Plan Cultures: Blood culture no growth SARS CoV2 PCR positive Assessment: 20-year-old female no medical history, admitted on 03/21/2021 secondary to 7-day history of malaise, cough, fever, shortness of breath: #SIRS: secondary to COVID-19 infection plus UTI #Bilateral pneumonia secondary to COVID-19: CXR with multifocal airspace disease. #Urinalysis consistent with UTI. #Acute hypoxemic respiratory failure: Patient on 2 L. #Elevated LFTs: from COVID Recommendations: -Continue dexamethasone 6 mg IV/PO daily for 10 days -Continue remdesivir, once weaned off oxygen, can discontinue, maximum 5 days -Monitor inflammatory markers - ferritin, D-dimer, CRP, LDH -Continue ceftriaxone for 5 days and azithromycin for 3 days Cecil Rodriguez MD, FACP [facility] O: [phone] F: [phone] Subjective Date of service: 03/23/21 Interval history: Febrile yesterday. Remains on oxygen by nasal cannula. COVID-19 positive Objective - Exam Narrative Exam: Physical Exam (reviewed in chart to minimize risk of transmission) Constitutional: deferred Head, Ears, Nose: deferred Eyes: deferred Neck: deferred Oral: deferred Cardiovascular: deferred Respiratory: deferred GI: deferred Musculoskeletal: deferred Skin: deferred Hem/Lymphatic: deferred Psych: deferred Neurological: deferred - Constitutional Vitals: Vital Signs Temp Pulse Resp BP Pulse Ox 98.5 F 88 16 114/60 92 03/23/21 04:17 03/23/21 04:17 03/23/21 04:17 03/23/21 04:17 03/23/21 12:34 Temperature -Last 24 Hours Temperature 98.5 F Temperature 102.8 F Temperature 100.2 F - Labs CBC & Chem 7: 03/23/21 09:17 03/23/21 09:17 Labs: Abnormal lab results 03/22/21 03/23/21 03/23/21 Range/Units Unknown 09:17 09:17 WBC 13.5 H (4.5-11.0) K/mm3 RDW 12.8 L (13.2-15.2) % Seg Neutrophils % 74.8 H (40.0-70.0) % Seg Neutrophils # 10.1 H (1.8-7.7) K/mm3 Glucose 104 H (65-100) mg/dL Coronavirus (PCR) Positive A (Negative)
[2021-03-23] MEDS: cefTRIAXone/NS 2 GM/100 ML 2 GM/100 ML BAG IV SCH (22:16)
[2021-03-23] MEDS: AZITHROMYCIN/NS 500 MG/250 ML 500 MG/250 ML BAG IV SCH (22:16)
[2021-03-24] MEDS: ONDANSETRON 4 MG/2 ML INJ IV PRN (00:48)
--- NOTE | 2021-03-24 07:30 | Progress Note ---
Assessment and Plan Assessment and plan: -- Acute respiratory failure with hypoxia, resolved Likely due to underlying Covid pneumonia We will assess home O2 requirement on ambulation Continue Covid protocol: Nasal cannula O2 as needed -- Bilateral pneumonia with COVID-19 virus infection -Patient tested positive for COVID-19 virus -CXR shows patchy parenchymal disease which represent atypical pneumonia -S/p dexamethasone, azithromycin and Rocephin in the ED -Ordered procalcitonin level, continue empiric antibiotics and steroids for now -Infectious disease consulted, -Droplet/contact isolation -Continue SPO2 monitoring -Supplemental oxygen as needed -Pulmonary hygiene -Prone to sleep -Vitamin C, vitamin D, zinc -Anticoagulation per protocol -Lasix IV as needed to prevent pulmonary edema --Hypokalemia, replete and follow BMP --DVT prophylaxis Heparin 5000 units subcu every 8 hours for DVT prophylaxis. Pepcid 20 mg p.o. twice daily for GI prophylaxis. Patient is a full code Daily clinical course; 03/22/21: positive for COVID, consulted ID, follow recommendation. Continue empiric antibiotic. Procalcitonin level is pending, patient resting in room air does not meet criteria for remdesivir. 03/23 -Patient was on 2 L of oxygen. She does complaining cough, shortness of breath. We will do 6-minute walk. And if off oxygen patient can be discharged tomorrow. 03/24 -Patient was on 3 L of oxygen. Wean off oxygen as tolerated -Patient was seen by ID and started on remdesivir. Continue Decadron -Patient is on IV ceftriaxone, urine cultures negative. Will check procalcitonin and if normal we can discontinue antibiotic. History Interval history: Patient was seen and evaluated this morning Patient was complaining shortness of breath, chest pain and cough Patient was on 3 L of oxygen Hospitalist Physical - Physical exam Narrative exam: Not in cardiopulmonary distress. The patient is obese. Vital signs as documented. Head exam is unremarkable. No scleral icterus . Neck is without jugular venous distension, thyromegaly, or carotid bruits. Lungs are clear to auscultation. Cardiac exam reveals regular rate and Rhythm. Abdominal exam reveals normal bowel sounds, nontender, no organomegaly. Extremities are nonedematous and both femoral and pedal pulses are normal. 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 No focal weakness. - Constitutional Vitals: Temp Pulse Resp BP Pulse Ox 99.5 F 90 20 127/73 93 03/24/21 05:51 03/24/21 05:51 03/24/21 05:51 03/24/21 05:51 03/24/21 05:51 General appearance: Present: no acute distress, well-nourished Results - Labs CBC & Chem 7: 03/23/21 09:17 03/23/21 09:17 Labs: Laboratory Last Values WBC 13.5 K/mm3 (4.5-11.0) H 03/23/21 09:17 RBC 3.85 M/mm3 (3.65-5.03) 03/23/21 09:17 Hgb 11.9 gm/dl (10.1-14.3) 03/23/21 09:17 Hct 35.0 % (30.3-42.9) 03/23/21 09:17 MCV 91 fl (79-97) 03/23/21 09:17 MCH 31 pg (28-32) 03/23/21 09:17 MCHC 34 % (30-34) 03/23/21 09:17 RDW 12.8 % (13.2-15.2) L 03/23/21 09:17 Plt Count 279 K/mm3 (140-440) 03/23/21 09:17 Lymph % (Auto) 18.3 % (13.4-35.0) 03/23/21 09:17 [place] % (Auto) 6.0 % (0.0-7.3) 03/23/21 09:17 Eos % (Auto) 0.0 % (0.0-4.3) 03/23/21 09:17 Baso % (Auto) 0.9 % (0.0-1.8) 03/23/21 09:17 Lymph # (Auto) 2.5 K/mm3 (1.2-5.4) 03/23/21 09:17 [place] # (Auto) 0.8 K/mm3 (0.0-0.8) 03/23/21 09:17 Eos # (Auto) 0.0 K/mm3 (0.0-0.4) 03/23/21 09:17 Baso # (Auto) 0.1 K/mm3 (0.0-0.1) 03/23/21 09:17 Seg Neutrophils % 74.8 % (40.0-70.0) H 03/23/21 09:17 Seg Neutrophils # 10.1 K/mm3 (1.8-7.7) H 03/23/21 09:17 Sodium 138 mmol/L (137-145) 03/23/21 09:17 Potassium 3.7 mmol/L (3.6-5.0) 03/23/21 09:17 Chloride 101.8 mmol/L (98-107) 03/23/21 09:17 Carbon Dioxide 22 mmol/L (22-30) 03/23/21 09:17 Anion Gap 18 mmol/L 03/23/21 09:17 BUN 7 mg/dL (7-17) 03/23/21 09:17 Creatinine 0.7 mg/dL (0.6-1.2) 03/23/21 09:17 Estimated GFR > 60 ml/min 03/23/21 09:17 BUN/Creatinine Ratio 10 % 03/23/21 09:17 Glucose 104 mg/dL (65-100) H 03/23/21 09:17 Lactic Acid 1.70 mmol/L (0.7-2.0) 03/21/21 22:34 Calcium 8.7 mg/dL (8.4-10.2) 03/23/21 09:17 Total Bilirubin 0.40 mg/dL (0.1-1.2) 03/21/21 22:34 AST 46 units/L (5-40) H 03/21/21 22:34 ALT 71 units/L (7-56) H 03/21/21 22:34 Alkaline Phosphatase 62 units/L (35-129) 03/21/21 22:34 Total Protein 8.5 g/dL (6.3-8.2) H 03/21/21 22:34 Albumin 4.1 g/dL (3.9-5) 03/21/21 22:34 Albumin/Globulin Ratio 0.9 % 03/21/21 22:34 HCG, Qual Negative (Negative) 03/21/21 23:54 Urine Color Yellow (Yellow) 03/21/21 23:00 Urine Turbidity Slightly-cloudy (Clear) 03/21/21 23:00 Urine pH 6.0 (5.0-7.0) 03/21/21 23:00 Ur Specific [place] 1.020 (1.003-1.030) 03/21/21 23:00 Urine Protein 100 mg/dl mg/dL (Negative) 03/21/21 23:00 Urine Glucose (UA) Neg mg/dL (Negative) 03/21/21 23:00 Urine Ketones 80 mg/dL (Negative) 03/21/21 23:00 Urine Blood Sm (Negative) 03/21/21 23:00 Urine Nitrite Neg (Negative) 03/21/21 23:00 Urine Bilirubin Neg (Negative) 03/21/21 23:00 Urine Urobilinogen 2.0 mg/dL (<2.0) 03/21/21 23:00 Ur Leukocyte Esterase Mod (Negative) 03/21/21 23:00 Urine WBC (Auto) 13.0 /HPF (0.0-6.0) H 03/21/21 23:00 Urine RBC (Auto) 2.0 /HPF (0.0-6.0) 03/21/21 23:00 U Epithel Cells (Auto) 4.0 /HPF (0-13.0) 03/21/21 23:00 Urine Mucus Few /HPF 03/21/21 23:00 Urine HCG, Qual Negative (Negative) 03/21/21 23:00 Coronavirus (PCR) Positive (Negative) A 03/22/21 Unknown Microbiology: Microbiology 03/21/21 23:00 Peripheral/Venous Blood Culture - Preliminary NO GROWTH AFTER 48 HOURS 03/21/21 22:30 Peripheral/Venous Blood Culture - Preliminary NO GROWTH AFTER 48 HOURS 03/21/21 23:00 Urine,Clean Catch Urine Culture - Preliminary Brewer/IV: Voiding Method Toilet Active Medications - Current Medications Current Medications: Generic Name Dose Route Start Last Admin Trade Name Freq PRN Reason Stop Dose Admin Acetaminophen 650 mg 03/22/21 03:17 03/23/21 11:50 Acetaminophen 325 Mg Tab PO 650 mg Q4H PRN Administration Pain MILD(1-3)/Fever >100.5/LOCKHART Albuterol 2.5 mg 03/22/21 03:17 Albuterol 2.5 Mg/3 Ml Nebu IH Q4HRT PRN Shortness Of Breath Dexamethasone 6 mg 03/24/21 10:00 Dexamethasone 4 Mg Tab PO 03/31/21 12:00 DAILY BERNARDINO Famotidine 20 mg 03/22/21 10:00 03/23/21 22:14 Famotidine 20 Mg Tab PO 20 mg BID BERNARDINO Administration Guaifenesin 100 mg 03/22/21 23:30 03/23/21 22:15 Guaifenesin 100 Mg/5 Ml Oral Liqd PO 100 mg Q4H PRN Administration Cough Heparin Sodium (Porcine) 5,000 unit 03/22/21 06:00 03/23/21 22:15 Heparin 5,000 Unit/1 Ml Vial SUB-Q 5,000 unit Q8HR BERNARDINO Administration Hydromorphone HCl 0.5 mg 03/22/21 03:17 Hydromorphone 1 Mg/1 Ml Inj IV Q3H PRN Pain , Severe (7-10) Ceftriaxone Sodium 2 gm in 100 mls @ 200 mls/hr 03/22/21 22:00 03/23/21 22:16 Rocephin/Ns 2 Gm/100 Ml IV 03/25/21 22:29 200 mls/hr QHS BERNARDINO Administration Protocol REMDESIVIR 100 mg/ Sodium 250 mls @ 500 mls/hr 03/24/21 21:00 Chloride IV 03/27/21 21:29 Q24HR@2100 [facility] Ondansetron HCl 4 mg 03/22/21 03:17 03/24/21 00:48 Ondansetron 4 Mg/2 Ml Inj IV 4 mg Q8H PRN Administration Nausea And Vomiting Oxycodone/Acetaminophen 1 tab 03/22/21 03:17 03/22/21 22:22 Oxycodone /Acetaminophen 5-325mg Tab PO 1 tab Q6H PRN Administration Pain, Moderate (4-6) Sodium Chloride 10 ml 03/22/21 10:00 03/23/21 22:16 Sodium Chloride 0.9% 10 Ml Flush Syringe IV 10 ml BID BERNARDINO Administration Sodium Chloride 10 ml 03/22/21 03:17 Sodium Chloride 0.9% 10 Ml Flush Syringe IV PRN PRN LINE FLUSH Sodium Chloride 50 ml 03/23/21 11:00 03/23/21 11:51 Sodium Chloride 0.9% 50 Ml Ivpb IV 03/27/21 21:01 50 ml Q24HR@2100 BERNARDINO Administration
[2021-03-24] MEDS: HEPARIN 5,000 UNIT/1 ML VIAL SUB-Q SCH ×3 (07:42→23:38)
[2021-03-24 08:41] LABS: Alanine Aminotransferase 34 units/L (7-56); Albumin 3.6 g/dL (3.9-5); BUN/Creatinine Ratio 13; Blood Urea Nitrogen 8 mg/dL (7-17); Calcium 8.7 mg/dL (8.4-10.2); Hemolysis Index 3
--- NOTE | 2021-03-24 08:45 | Electrocardiograph Report ---
[facility] Test Date: 2021-03-23 Test Time: 06:37:18 Pat Name: SCOTTIE GONCALVES Department: Room: A360 1 Gender: F Phlebotomy Services Technician: AARON : 2000 Requested By: ROOPA MCKENZIE Order Number: [id number] Reading MD: Lemuel Shannon Measurements Intervals [place] Rate: 99 P: 26 ME: 127 QRS: 41 QRSD: 81 T: -19 QT: 310 QTc: 399 Interpretive Statements Sinus rhythm Borderline T abnormalities, diffuse leads No previous ECG available for comparison Electronically Signed On 03-24-2021 8:45:05 EDT by Lemuel Shannon
[2021-03-24] MEDS: guaiFENesin 100 MG/5 ML ORAL LIQD PO PRN ×2 (09:47→23:40)
[2021-03-24] MEDS: DEXAMETHASONE 4 MG TAB PO SCH (09:48)
[2021-03-24] MEDS: FAMOTIDINE 20 MG TAB PO SCH ×2 (09:49→23:38)
--- NOTE | 2021-03-24 12:13 | Progress Note ---
Assessment and Plan Cultures: Blood culture no growth SARS CoV2 PCR positive Assessment: 20-year-old female no medical history, admitted on 03/21/2021 secondary to 7-day history of malaise, cough, fever, shortness of breath: #SIRS: secondary to COVID-19 infection plus UTI #Bilateral pneumonia secondary to COVID-19: CXR with multifocal airspace disease. #Urinalysis with minimal pyuria, culture with skin mark. #Acute hypoxemic respiratory failure: Patient on 3 L. #Elevated LFTs: from COVID Recommendations: -Continue dexamethasone 6 mg IV/PO daily for 10 days -Continue remdesivir, once weaned off oxygen, can discontinue, maximum 5 days -Monitor inflammatory markers - ferritin, D-dimer, CRP, LDH -f/u procalcitonin, if low can d/c abx, otherwise complete ceftriaxone x 5 days and azithromycin x 3 days Will sign off. Please reconsult as needed Cecil Rodriguez MD, FACP [facility] O: [phone] F: [phone] Subjective Date of service: 03/24/21 Interval history: Afebrile today. Remains on oxygen by OR. Objective - Exam Narrative Exam: Physical Exam (reviewed in chart to minimize risk of transmission) Constitutional: deferred Head, Ears, Nose: deferred Eyes: deferred Neck: deferred Oral: deferred Cardiovascular: deferred Respiratory: deferred GI: deferred Musculoskeletal: deferred Skin: deferred Hem/Lymphatic: deferred Psych: deferred Neurological: deferred - Constitutional Vitals: Vital Signs Temp Pulse Resp BP Pulse Ox 99.5 F 90 20 127/73 93 03/24/21 05:51 03/24/21 05:51 03/24/21 05:51 03/24/21 05:51 03/24/21 05:51 Temperature -Last 24 Hours Temperature 99.5 F Temperature 98.9 F - Labs CBC & Chem 7: 03/23/21 09:17 03/24/21 08:01 Labs: Abnormal lab results 03/24/21 03/24/21 03/24/21 Range/Units 08:01 08:01 08:01 D-Dimer 619.99 H (0-234) ng/mlDDU Ferritin 791.2 H (10.0-200.0) ng/mL Lactate Dehydrogenase 378 H (91-180) units/L C-Reactive Protein 6.70 H (0.00-1.30) mg/dL Albumin 3.6 L (3.9-5) g/dL
[2021-03-24] MEDS: cefTRIAXone/NS 2 GM/100 ML 2 GM/100 ML BAG IV SCH (23:37)
[2021-03-24] MEDS: REMDESIVIR 100 MG in SODIUM CHLORIDE 0.9% 250ML 250 ML IV SCH (23:37)
[2021-03-24] MEDS: SODIUM CHLORIDE 0.9% 50 ML IVPB IV SCH (23:37)
[2021-03-24] MEDS: ACETAMINOPHEN 325 MG TAB PO PRN (23:38)
[2021-03-25] MEDS: HEPARIN 5,000 UNIT/1 ML VIAL SUB-Q SCH ×3 (06:08→21:07)
[2021-03-25 06:48] LABS: Alanine Aminotransferase 36 units/L (7-56); Blood Urea Nitrogen 11 mg/dL (7-17); Calcium 9.3 mg/dL (8.4-10.2); Hemolysis Index 4
[2021-03-25 07:12] LABS: BUN/Creatinine Ratio 18
[2021-03-25] MEDS: FAMOTIDINE 20 MG TAB PO SCH ×2 (09:20→21:07)
[2021-03-25] MEDS: DEXAMETHASONE 4 MG TAB PO SCH (09:20)
--- NOTE | 2021-03-25 10:53 | Progress Note ---
Assessment and Plan Assessment and plan: -- Acute respiratory failure with hypoxia, resolved Likely due to underlying Covid pneumonia We will assess home O2 requirement on ambulation Continue Covid protocol: Nasal cannula O2 as needed -- Bilateral pneumonia with COVID-19 virus infection -Patient tested positive for COVID-19 virus -CXR shows patchy parenchymal disease which represent atypical pneumonia -S/p dexamethasone, azithromycin and Rocephin in the ED -Ordered procalcitonin level, continue empiric antibiotics and steroids for now -Infectious disease consulted, -Droplet/contact isolation -Continue SPO2 monitoring -Supplemental oxygen as needed -Pulmonary hygiene -Prone to sleep -Vitamin C, vitamin D, zinc -Anticoagulation per protocol -Lasix IV as needed to prevent pulmonary edema --Hypokalemia, replete and follow BMP --DVT prophylaxis Heparin 5000 units subcu every 8 hours for DVT prophylaxis. Pepcid 20 mg p.o. twice daily for GI prophylaxis. Patient is a full code Daily clinical course; 03/22/21: positive for COVID, consulted ID, follow recommendation. Continue empiric antibiotic. Procalcitonin level is pending, patient resting in room air does not meet criteria for remdesivir. 03/23 -Patient was on 2 L of oxygen. She does complaining cough, shortness of breath. We will do 6-minute walk. And if off oxygen patient can be discharged tomorrow. 03/24 -Patient was on 3 L of oxygen. Wean off oxygen as tolerated -Patient was seen by ID and started on remdesivir. Continue Decadron -Patient is on IV ceftriaxone, urine cultures negative. Will check procalcitonin and if normal we can discontinue antibiotic. 03/25 -Patient was on 3 L of oxygen. Wean off oxygen as tolerated. -Patient is on remdesivir and Decadron. -Procalcitonin level was normal and urine culture was negative and I discontinued ceftriaxone. History Interval history: Patient was seen and evaluated this morning Patient was complaining shortness of breath, chest pain and cough Patient was on 3 L of oxygen Hospitalist Physical - Physical exam Narrative exam: Not in cardiopulmonary distress. The patient is obese. Vital signs as documented. Head exam is unremarkable. No scleral icterus . Neck is without jugular venous distension, thyromegaly, or carotid bruits. Lungs are clear to auscultation. Cardiac exam reveals regular rate and Rhythm. Abdominal exam reveals normal bowel sounds, nontender, no organomegaly. Extremities are nonedematous and both femoral and pedal pulses are normal. 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 No focal weakness. - Constitutional Vitals: Temp Pulse Resp BP Pulse Ox 97.9 F 63 18 111/64 95 03/25/21 05:16 03/25/21 05:16 03/25/21 05:16 03/25/21 05:16 03/25/21 05:16 General appearance: Present: no acute distress, well-nourished Results - Labs CBC & Chem 7: 03/23/21 09:17 03/25/21 05:52 Labs: Laboratory Last Values WBC 13.5 K/mm3 (4.5-11.0) H 03/23/21 09:17 RBC 3.85 M/mm3 (3.65-5.03) 03/23/21 09:17 Hgb 11.9 gm/dl (10.1-14.3) 03/23/21 09:17 Hct 35.0 % (30.3-42.9) 03/23/21 09:17 MCV 91 fl (79-97) 03/23/21 09:17 MCH 31 pg (28-32) 03/23/21 09:17 MCHC 34 % (30-34) 03/23/21 09:17 RDW 12.8 % (13.2-15.2) L 03/23/21 09:17 Plt Count 279 K/mm3 (140-440) 03/23/21 09:17 Lymph % (Auto) 18.3 % (13.4-35.0) 03/23/21 09:17 [place] % (Auto) 6.0 % (0.0-7.3) 03/23/21 09:17 Eos % (Auto) 0.0 % (0.0-4.3) 03/23/21 09:17 Baso % (Auto) 0.9 % (0.0-1.8) 03/23/21 09:17 Lymph # (Auto) 2.5 K/mm3 (1.2-5.4) 03/23/21 09:17 [place] # (Auto) 0.8 K/mm3 (0.0-0.8) 03/23/21 09:17 Eos # (Auto) 0.0 K/mm3 (0.0-0.4) 03/23/21 09:17 Baso # (Auto) 0.1 K/mm3 (0.0-0.1) 03/23/21 09:17 Seg Neutrophils % 74.8 % (40.0-70.0) H 03/23/21 09:17 Seg Neutrophils # 10.1 K/mm3 (1.8-7.7) H 03/23/21 09:17 D-Dimer 619.99 ng/mlDDU (0-234) H 03/24/21 08:01 Sodium 141 mmol/L (137-145) 03/25/21 05:52 Potassium 3.7 mmol/L (3.6-5.0) 03/25/21 05:52 Chloride 103.3 mmol/L (98-107) 03/25/21 05:52 Carbon Dioxide 24 mmol/L (22-30) 03/25/21 05:52 Anion Gap 17 mmol/L 03/25/21 05:52 BUN 11 mg/dL (7-17) 03/25/21 05:52 Creatinine 0.6 mg/dL (0.6-1.2) 03/25/21 05:52 Estimated GFR > 60 ml/min 03/25/21 05:52 BUN/Creatinine Ratio 18 % 03/25/21 05:52 Glucose 98 mg/dL (65-100) 03/25/21 05:52 Lactic Acid 1.70 mmol/L (0.7-2.0) 03/21/21 22:34 Calcium 9.3 mg/dL (8.4-10.2) 03/25/21 05:52 Ferritin 791.2 ng/mL (10.0-200.0) H 03/24/21 08:01 Total Bilirubin 0.40 mg/dL (0.1-1.2) 03/25/21 05:52 AST 30 units/L (5-40) 03/25/21 05:52 ALT 36 units/L (7-56) 03/25/21 05:52 Alkaline Phosphatase 50 units/L (35-129) 03/25/21 05:52 Lactate Dehydrogenase 378 units/L (91-180) H 03/24/21 08:01 C-Reactive Protein 6.70 mg/dL (0.00-1.30) H 03/24/21 08:01 Total Protein 8.0 g/dL (6.3-8.2) 03/25/21 05:52 Albumin 4.0 g/dL (3.9-5) 03/25/21 05:52 Albumin/Globulin Ratio 1.0 % 03/25/21 05:52 Procalcitonin 0.17 ng/mL (<0.15) 03/24/21 08:01 HCG, Qual Negative (Negative) 03/21/21 23:54 Urine Color Yellow (Yellow) 03/21/21 23:00 Urine Turbidity Slightly-cloudy (Clear) 03/21/21 23:00 Urine pH 6.0 (5.0-7.0) 03/21/21 23:00 Ur Specific [place] 1.020 (1.003-1.030) 03/21/21 23:00 Urine Protein 100 mg/dl mg/dL (Negative) 03/21/21 23:00 Urine Glucose (UA) Neg mg/dL (Negative) 03/21/21 23:00 Urine Ketones 80 mg/dL (Negative) 03/21/21 23:00 Urine Blood Sm (Negative) 03/21/21 23:00 Urine Nitrite Neg (Negative) 03/21/21 23:00 Urine Bilirubin Neg (Negative) 03/21/21 23:00 Urine Urobilinogen 2.0 mg/dL (<2.0) 03/21/21 23:00 Ur Leukocyte Esterase Mod (Negative) 03/21/21 23:00 Urine WBC (Auto) 13.0 /HPF (0.0-6.0) H 03/21/21 23:00 Urine RBC (Auto) 2.0 /HPF (0.0-6.0) 03/21/21 23:00 U Epithel Cells (Auto) 4.0 /HPF (0-13.0) 03/21/21 23:00 Urine Mucus Few /HPF 03/21/21 23:00 Urine HCG, Qual Negative (Negative) 03/21/21 23:00 Coronavirus (PCR) Positive (Negative) A 03/22/21 Unknown Microbiology: Microbiology 03/21/21 23:00 Peripheral/Venous Blood Culture - Preliminary NO GROWTH AFTER 72 HOURS 03/21/21 22:30 Peripheral/Venous Blood Culture - Preliminary NO GROWTH AFTER 72 HOURS 03/21/21 23:00 Urine,Clean Catch Urine Culture - Final Brewer/IV: Voiding Method Toilet Active Medications - Current Medications Current Medications: Generic Name Dose Route Start Last Admin Trade Name Freq PRN Reason Stop Dose Admin Acetaminophen 650 mg 03/22/21 03:17 03/24/21 23:38 Acetaminophen 325 Mg Tab PO 650 mg Q4H PRN Administration Pain MILD(1-3)/Fever >100.5/LOCKHART Albuterol 2.5 mg 03/22/21 03:17 Albuterol 2.5 Mg/3 Ml Nebu IH Q4HRT PRN Shortness Of Breath Dexamethasone 6 mg 03/24/21 10:00 03/25/21 09:20 Dexamethasone 4 Mg Tab PO 03/31/21 12:00 6 mg DAILY BERNARDINO Administration Famotidine 20 mg 03/22/21 10:00 03/25/21 09:20 Famotidine 20 Mg Tab PO 20 mg BID BERNARDINO Administration Guaifenesin 100 mg 03/22/21 23:30 03/24/21 23:40 Guaifenesin 100 Mg/5 Ml Oral Liqd PO 100 mg Q4H PRN Administration Cough Heparin Sodium (Porcine) 5,000 unit 03/22/21 06:00 03/25/21 06:08 Heparin 5,000 Unit/1 Ml Vial SUB-Q 5,000 unit Q8HR BERNARDINO Administration Hydromorphone HCl 0.5 mg 03/22/21 03:17 Hydromorphone 1 Mg/1 Ml Inj IV Q3H PRN Pain , Severe (7-10) Ceftriaxone Sodium 2 gm in 100 mls @ 200 mls/hr 03/22/21 22:00 03/24/21 23:37 Rocephin/Ns 2 Gm/100 Ml IV 03/25/21 22:29 200 mls/hr QHS BERNARDINO Administration Protocol REMDESIVIR 100 mg/ Sodium 250 mls @ 500 mls/hr 03/24/21 21:00 03/24/21 23:37 Chloride IV 03/27/21 21:29 500 mls/hr Q24HR@2100 BERNARDINO Administration Ondansetron HCl 4 mg 03/22/21 03:17 03/24/21 00:48 Ondansetron 4 Mg/2 Ml Inj IV 4 mg Q8H PRN Administration Nausea And Vomiting Oxycodone/Acetaminophen 1 tab 03/22/21 03:17 03/22/21 22:22 Oxycodone /Acetaminophen 5-325mg Tab PO 1 tab Q6H PRN Administration Pain, Moderate (4-6) Sodium Chloride 10 ml 03/22/21 10:00 03/25/21 09:21 Sodium Chloride 0.9% 10 Ml Flush Syringe IV 10 ml BID BERNARDINO Administration Sodium Chloride 10 ml 03/22/21 03:17 Sodium Chloride 0.9% 10 Ml Flush Syringe IV PRN PRN LINE FLUSH Sodium Chloride 50 ml 03/23/21 11:00 03/24/21 23:37 Sodium Chloride 0.9% 50 Ml Ivpb IV 03/27/21 21:01 50 ml Q24HR@2100 BERNARDINO Administration
[2021-03-25] MEDS: SODIUM CHLORIDE 0.9% 50 ML IVPB IV SCH (21:08)
[2021-03-25] MEDS: REMDESIVIR 100 MG in SODIUM CHLORIDE 0.9% 250ML 250 ML IV SCH (21:10)
[2021-03-26] MEDS: HEPARIN 5,000 UNIT/1 ML VIAL SUB-Q SCH ×3 (05:59→21:54)
[2021-03-26 06:54] LABS: Alanine Aminotransferase 50 units/L (7-56); Albumin 3.7 g/dL (3.9-5); Blood Urea Nitrogen 9 mg/dL (7-17); Calcium 9.2 mg/dL (8.4-10.2); Hemolysis Index 172
[2021-03-26 07:12] LABS: BUN/Creatinine Ratio 18
[2021-03-26] MEDS: FAMOTIDINE 20 MG TAB PO SCH ×2 (09:08→21:54)
[2021-03-26] MEDS: DEXAMETHASONE 4 MG TAB PO SCH (09:08)
--- NOTE | 2021-03-26 09:16 | Progress Note ---
Assessment and Plan Assessment and plan: -- Acute respiratory failure with hypoxia, resolved Likely due to underlying Covid pneumonia We will assess home O2 requirement on ambulation Continue Covid protocol: Nasal cannula O2 as needed -- Bilateral pneumonia with COVID-19 virus infection -Patient tested positive for COVID-19 virus -CXR shows patchy parenchymal disease which represent atypical pneumonia -S/p dexamethasone, azithromycin and Rocephin in the ED -Ordered procalcitonin level, continue empiric antibiotics and steroids for now -Infectious disease consulted, -Droplet/contact isolation -Continue SPO2 monitoring -Supplemental oxygen as needed -Pulmonary hygiene -Prone to sleep -Vitamin C, vitamin D, zinc -Anticoagulation per protocol -Lasix IV as needed to prevent pulmonary edema --Hypokalemia, replete and follow BMP --DVT prophylaxis Heparin 5000 units subcu every 8 hours for DVT prophylaxis. Pepcid 20 mg p.o. twice daily for GI prophylaxis. Patient is a full code Daily clinical course; 03/22/21: positive for COVID, consulted ID, follow recommendation. Continue empiric antibiotic. Procalcitonin level is pending, patient resting in room air does not meet criteria for remdesivir. 03/23 -Patient was on 2 L of oxygen. She does complaining cough, shortness of breath. We will do 6-minute walk. And if off oxygen patient can be discharged tomorrow. 03/24 -Patient was on 3 L of oxygen. Wean off oxygen as tolerated -Patient was seen by ID and started on remdesivir. Continue Decadron -Patient is on IV ceftriaxone, urine cultures negative. Will check procalcitonin and if normal we can discontinue antibiotic. 03/25 -Patient was on 3 L of oxygen. Wean off oxygen as tolerated. -Patient is on remdesivir and Decadron. -Procalcitonin level was normal and urine culture was negative and I discontinued ceftriaxone. 03/26 -Patient was on 3 L of oxygen saturating 90% on ambulation. Wean off oxygen as tolerated -Continue remdesivir and Decadron History Interval history: Patient was seen and evaluated this morning Patient was complaining shortness of breath, chest pain and cough Patient was on 3 L of oxygen Hospitalist Physical - Physical exam Narrative exam: Not in cardiopulmonary distress. The patient is obese. Vital signs as documented. Head exam is unremarkable. No scleral icterus . Neck is without jugular venous distension, thyromegaly, or carotid bruits. Lungs are clear to auscultation. Cardiac exam reveals regular rate and Rhythm. Abdominal exam reveals normal bowel sounds, nontender, no organomegaly. Extremities are nonedematous and both femoral and pedal pulses are normal. 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 No focal weakness. - Constitutional Vitals: Temp Pulse Resp BP Pulse Ox 97.9 F 65 20 128/72 98 03/25/21 16:50 03/25/21 16:50 03/25/21 16:50 03/25/21 16:50 03/25/21 22:00 General appearance: Present: no acute distress, well-nourished Results - Labs CBC & Chem 7: 03/23/21 09:17 03/26/21 05:42 Labs: Laboratory Last Values WBC 13.5 K/mm3 (4.5-11.0) H 03/23/21 09:17 RBC 3.85 M/mm3 (3.65-5.03) 03/23/21 09:17 Hgb 11.9 gm/dl (10.1-14.3) 03/23/21 09:17 Hct 35.0 % (30.3-42.9) 03/23/21 09:17 MCV 91 fl (79-97) 03/23/21 09:17 MCH 31 pg (28-32) 03/23/21 09:17 MCHC 34 % (30-34) 03/23/21 09:17 RDW 12.8 % (13.2-15.2) L 03/23/21 09:17 Plt Count 279 K/mm3 (140-440) 03/23/21 09:17 Lymph % (Auto) 18.3 % (13.4-35.0) 03/23/21 09:17 [place] % (Auto) 6.0 % (0.0-7.3) 03/23/21 09:17 Eos % (Auto) 0.0 % (0.0-4.3) 03/23/21 09:17 Baso % (Auto) 0.9 % (0.0-1.8) 03/23/21 09:17 Lymph # (Auto) 2.5 K/mm3 (1.2-5.4) 03/23/21 09:17 [place] # (Auto) 0.8 K/mm3 (0.0-0.8) 03/23/21 09:17 Eos # (Auto) 0.0 K/mm3 (0.0-0.4) 03/23/21 09:17 Baso # (Auto) 0.1 K/mm3 (0.0-0.1) 03/23/21 09:17 Seg Neutrophils % 74.8 % (40.0-70.0) H 03/23/21 09:17 Seg Neutrophils # 10.1 K/mm3 (1.8-7.7) H 03/23/21 09:17 D-Dimer 619.99 ng/mlDDU (0-234) H 03/24/21 08:01 Sodium 141 mmol/L (137-145) 03/26/21 05:42 Potassium 4.1 mmol/L (3.6-5.0) 03/26/21 05:42 Chloride 105.1 mmol/L (98-107) 03/26/21 05:42 Carbon Dioxide 23 mmol/L (22-30) 03/26/21 05:42 Anion Gap 17 mmol/L 03/26/21 05:42 BUN 9 mg/dL (7-17) 03/26/21 05:42 Creatinine 0.5 mg/dL (0.6-1.2) L 03/26/21 05:42 Estimated GFR > 60 ml/min 03/26/21 05:42 BUN/Creatinine Ratio 18 % 03/26/21 05:42 Glucose 86 mg/dL (65-100) 03/26/21 05:42 Lactic Acid 1.70 mmol/L (0.7-2.0) 03/21/21 22:34 Calcium 9.2 mg/dL (8.4-10.2) 03/26/21 05:42 Ferritin 791.2 ng/mL (10.0-200.0) H 03/24/21 08:01 Total Bilirubin 0.40 mg/dL (0.1-1.2) 03/26/21 05:42 AST 54 units/L (5-40) H 03/26/21 05:42 ALT 50 units/L (7-56) 03/26/21 05:42 Alkaline Phosphatase 50 units/L (35-129) 03/26/21 05:42 Lactate Dehydrogenase 378 units/L (91-180) H 03/24/21 08:01 C-Reactive Protein 6.70 mg/dL (0.00-1.30) H 03/24/21 08:01 Total Protein 7.9 g/dL (6.3-8.2) 03/26/21 05:42 Albumin 3.7 g/dL (3.9-5) L 03/26/21 05:42 Albumin/Globulin Ratio 0.9 % 03/26/21 05:42 Procalcitonin 0.17 ng/mL (<0.15) 03/24/21 08:01 HCG, Qual Negative (Negative) 03/21/21 23:54 Urine Color Yellow (Yellow) 03/21/21 23:00 Urine Turbidity Slightly-cloudy (Clear) 03/21/21 23:00 Urine pH 6.0 (5.0-7.0) 03/21/21 23:00 Ur Specific [place] 1.020 (1.003-1.030) 03/21/21 23:00 Urine Protein 100 mg/dl mg/dL (Negative) 03/21/21 23:00 Urine Glucose (UA) Neg mg/dL (Negative) 03/21/21 23:00 Urine Ketones 80 mg/dL (Negative) 03/21/21 23:00 Urine Blood Sm (Negative) 03/21/21 23:00 Urine Nitrite Neg (Negative) 03/21/21 23:00 Urine Bilirubin Neg (Negative) 03/21/21 23:00 Urine Urobilinogen 2.0 mg/dL (<2.0) 03/21/21 23:00 Ur Leukocyte Esterase Mod (Negative) 03/21/21 23:00 Urine WBC (Auto) 13.0 /HPF (0.0-6.0) H 03/21/21 23:00 Urine RBC (Auto) 2.0 /HPF (0.0-6.0) 03/21/21 23:00 U Epithel Cells (Auto) 4.0 /HPF (0-13.0) 03/21/21 23:00 Urine Mucus Few /HPF 03/21/21 23:00 Urine HCG, Qual Negative (Negative) 03/21/21 23:00 Coronavirus (PCR) Positive (Negative) A 03/22/21 Unknown Microbiology: Microbiology 03/21/21 23:00 Peripheral/Venous Blood Culture - Preliminary NO GROWTH AFTER 4 DAYS 03/21/21 22:30 Peripheral/Venous Blood Culture - Preliminary NO GROWTH AFTER 4 DAYS Brewer/IV: Voiding Method Toilet Active Medications - Current Medications Current Medications: Generic Name Dose Route Start Last Admin Trade Name Freq PRN Reason Stop Dose Admin Acetaminophen 650 mg 03/22/21 03:17 03/24/21 23:38 Acetaminophen 325 Mg Tab PO 650 mg Q4H PRN Administration Pain MILD(1-3)/Fever >100.5/LOCKHART Albuterol 2.5 mg 03/22/21 03:17 Albuterol 2.5 Mg/3 Ml Nebu IH Q4HRT PRN Shortness Of Breath Dexamethasone 6 mg 03/24/21 10:00 03/26/21 09:08 Dexamethasone 4 Mg Tab PO 03/31/21 12:00 6 mg DAILY BERNARDINO Administration Famotidine 20 mg 03/22/21 10:00 03/26/21 09:08 Famotidine 20 Mg Tab PO 20 mg BID BERNARDINO Administration Guaifenesin 100 mg 03/22/21 23:30 03/24/21 23:40 Guaifenesin 100 Mg/5 Ml Oral Liqd PO 100 mg Q4H PRN Administration Cough Heparin Sodium (Porcine) 5,000 unit 03/22/21 06:00 03/26/21 05:59 Heparin 5,000 Unit/1 Ml Vial SUB-Q 5,000 unit Q8HR BERNARDINO Administration Hydromorphone HCl 0.5 mg 03/22/21 03:17 Hydromorphone 1 Mg/1 Ml Inj IV Q3H PRN Pain , Severe (7-10) REMDESIVIR 100 mg/ Sodium 250 mls @ 500 mls/hr 03/24/21 21:00 03/25/21 21:10 Chloride IV 03/27/21 21:29 500 mls/hr Q24HR@2100 BERNARDINO Administration Ondansetron HCl 4 mg 03/22/21 03:17 03/24/21 00:48 Ondansetron 4 Mg/2 Ml Inj IV 4 mg Q8H PRN Administration Nausea And Vomiting Oxycodone/Acetaminophen 1 tab 03/22/21 03:17 03/22/21 22:22 Oxycodone /Acetaminophen 5-325mg Tab PO 1 tab Q6H PRN Administration Pain, Moderate (4-6) Sodium Chloride 10 ml 03/22/21 10:00 03/26/21 09:08 Sodium Chloride 0.9% 10 Ml Flush Syringe IV 10 ml BID BERNARDINO Administration Sodium Chloride 10 ml 03/22/21 03:17 Sodium Chloride 0.9% 10 Ml Flush Syringe IV PRN PRN LINE FLUSH Sodium Chloride 50 ml 03/23/21 11:00 03/25/21 21:08 Sodium Chloride 0.9% 50 Ml Ivpb IV 03/27/21 21:01 50 ml Q24HR@2100 BERNARDINO Administration
[2021-03-26] MEDS: REMDESIVIR 100 MG in SODIUM CHLORIDE 0.9% 250ML 250 ML IV SCH (21:54)
[2021-03-26] MEDS: SODIUM CHLORIDE 0.9% 50 ML IVPB IV SCH (21:55)
[2021-03-27] MEDS: HEPARIN 5,000 UNIT/1 ML VIAL SUB-Q SCH ×2 (06:28→13:54)
--- NOTE | 2021-03-27 10:28 | Discharge Summary ---
Providers - Providers Date of Admission: 03/22/21 03:18 Attending physician: TARYN MOORE MD 03/22/21 03:17 Consult to Physician [CONS] Routine Comment: Consulting Provider: FAWAD FAUST Physician Instructions: Reason For Exam: COVID-19 positive test (U07.1, COVID-19) with A Hospitalization Reason for admission: shortness of breath Condition: Stable Hospital course: 20 years old female with no significant past medical history was brought to the emergency room because of bilateral pneumonia, shortness of breath and coughing for the last 7 days. patient stated the symptoms started approximately 7 days ago with fever, shortness of breath and cough. Patient stated that her father is having similar symptoms. Patient is not vaccinated against COVID-19. Patient also reported nausea but no vomiting. Patient found to be hypoxic with oxygen saturation of 90% on room air improved to 96% on 2 L. In the emergency room patient chest x-ray consistent with Covid pneumonia. We are going to admit the patient will consult infectious disease for evaluation. We also sent Covid PCR -- Acute respiratory failure with hypoxia, resolved Likely due to underlying Covid pneumonia We will assess home O2 requirement on ambulation Continue Covid protocol: Nasal cannula O2 as needed -- Bilateral pneumonia with COVID-19 virus infection -Patient tested positive for COVID-19 virus -CXR shows patchy parenchymal disease which represent atypical pneumonia -S/p dexamethasone, azithromycin and Rocephin in the ED -Ordered procalcitonin level, continue empiric antibiotics and steroids for now -Infectious disease consulted, -Droplet/contact isolation -Continue SPO2 monitoring -Supplemental oxygen as needed -Pulmonary hygiene -Prone to sleep -Vitamin C, vitamin D, zinc -Anticoagulation per protocol -Lasix IV as needed to prevent pulmonary edema --Hypokalemia, replete and follow BMP Daily clinical course; 03/22/21: positive for COVID, consulted ID, follow recommendation. Continue empiric antibiotic. Procalcitonin level is pending, patient resting in room air does not meet criteria for remdesivir. 03/23 -Patient was on 2 L of oxygen. She does complaining cough, shortness of breath. We will do 6-minute walk. And if off oxygen patient can be discharged tomorrow. 03/24 -Patient was on 3 L of oxygen. Wean off oxygen as tolerated -Patient was seen by ID and started on remdesivir. Continue Decadron -Patient is on IV ceftriaxone, urine cultures negative. Will check procalcitonin and if normal we can discontinue antibiotic. 03/25 -Patient was on 3 L of oxygen. Wean off oxygen as tolerated. -Patient is on remdesivir and Decadron. -Procalcitonin level was normal and urine culture was negative and I discontinue d ceftriaxone. 03/26 -Patient was on 3 L of oxygen saturating 90% on ambulation. Wean off oxygen as tolerated -Continue remdesivir and Decadron 03/27: Patient doing well on 2 liters of oxygen, awaiting home o2 eval as she will likely need oxygen on discharge. Also anticoagulation for a period of 21 days. Patient verbalized understanding, no chest pain, nausea or vomiting. Disposition: 01 HOME / SELF CARE / HOMELESS Final Discharge Diagnosis (Prints w/discharge instructions): Bilateral pneumonia with acute respiratory failure with hypoxia secondary to COVID 19 Time spent for discharge: 35 mins Core Measure Documentation - Palliative Care Palliative Care/ Comfort Measures: Not Applicable - Core Measures Any of the following diagnoses?: none Exam - Physical Exam Narrative exam: VITAL SIGNS: Reviewed. GENERAL: The patient appears normally developed, Vital signs as documented. HEAD: No signs of head trauma. EYES: Pupils are equal. Extraocular motions intact. EARS: Hearing grossly intact. MOUTH: Oropharynx is normal. NECK: No adenopathy, no JVD. CHEST: Chest with clear breath sounds bilaterally. No wheezes, rales, or rho nchi. CARDIAC: Regular rate and rhythm. S1 and S2, without murmurs, gallops, or rubs. VASCULAR: No Edema. Peripheral pulses normal and equal in all extremities. ABDOMEN: Soft, non tender and non distended. No rebound or guarding, and no masses palpated. Bowel Sounds normal. MUSCULOSKELETAL: Good range of motion of all major joints. Extremities without clubbing, cyanosis or edema. NEUROLOGIC EXAM: Alert and oriented x 3 No focal sensory or strength deficits. Speech normal. Follows commands. PSYCHIATRIC: Mood normal. SKIN: detail exam as documented in skin assessment - Constitutional Vitals: Temp Pulse Resp BP Pulse Ox 98.2 F 56 L 20 117/69 98 03/27/21 05:24 03/27/21 05:24 03/27/21 05:03/27/21 05:21 05:24 Plan Activity: advance as tolerated, fall precautions Diet: regular Special Instructions: record daily weights, record daily BP diary Plan of Treatment: PLEASE NOTE, YOU ARE ON A BLOOD THINNER FOR 21 DAYS. This is to prevent COVID associated blood clot. It can make your menstrual period heavier than normal. Follow up with: STEPHANY SANDERS [Other] - 7 Days BALAJI FALCON MD [Staff Physician] - 7 Days Prescriptions: dexAMETHasone [Dexamethasone] 8 mg PO DAILY #12 tablet Apixaban [Eliquis] 2.5 mg PO DAILY #21 tablet Famotidine [Pepcid] 20 mg PO BID #60 tablet Ascorbic Acid [Vitamin C] 1,000 mg PO BID #60 tablet Cholecalciferol (Vitamin D3) [Vitamin D3] 5,000 unit PO DAILY #30 tablet Zinc Sulfate 0 mg PO BID #60 capsule
[2021-03-27] MEDS ORDERED: REMDESIVIR 100 MG in SODIUM CHLORIDE 0.9% 250ML 250 ML IV ONE (12:00)
[2021-03-27] MEDS ORDERED: SODIUM CHLORIDE 0.9% 50 ML IVPB IV ONE (13:00)
[2021-03-27] MEDS: FAMOTIDINE 20 MG TAB PO SCH (13:43)
[2021-03-27] MEDS: DEXAMETHASONE 4 MG TAB PO SCH (13:44)
[2021-03-27 14:09] VITALS: BP 115/58
--- NOTE | 2021-03-29 13:27 | XRay Report ---
XR chest routine 2V INDICATION / CLINICAL INFORMATION: sob cough fever. COMPARISON: None available. FINDINGS: SUPPORT DEVICES: None. HEART /PULMONARY VASCULATURE: No significant abnormality. LUNGS / PLEURA: Low lung volumes are present. Moderate bilateral airspace consolidation, most pronoun beverly within the left midlung. No sizable pleural effusion. No pneumothorax. ADDITIONAL FINDINGS: No significant additional findings. IMPRESSION: Moderate bilateral patchy airspace consolidation, greatest within the left midlung, compatible with p neumonia. Signer Name: Saúl Sharif MD Signed: 03/22/2021 12:42 AM Workstation Name: [id number]
== END 2021-03-27 19:36 | disposition home or self-care (01) | DRG 177 ==
LOC: ED 21:06 → 3A 03-22 03:18
PROVIDERS: ADMIT Hospitalist; ATTEND Internal Medicine
PROC: XW033E5 Introduction of Remdesivir Anti-infective into Peripheral Vein, Percutaneous Approach, New Technology Group 5 (ICD-10-PCS; principal; 2021-03-23)
DX: U07.1 COVID-19 (principal); J96.01 Acute respiratory failure with hypoxia; J12.82 Pneumonia due to coronavirus disease 2019; R65.10 Systemic inflammatory response syndrome (SIRS) of non-infectious origin without acute organ dysfunction; E87.6 Hypokalemia
CPT/HCPCS: 36415; 71045; 71046; 80048; 80053; 81001; 81025; 82140; 82728; 83615; 84145; 84703; 85025; 85379; 86140; 87040; 87086; 93005; 94760; G0378; J0456; J0696; J1100; J1644; J2405; J7030; J7050; J8540; U0003